=== PATIENT | male | born 1930 | race Caucasian/White ===

== ENCOUNTER 2016-05-29 10:35 | Inpatient (IN) | payer OTHER, MEDICARE ==
[~2016-05-29 10:35] MED LIST: AMIODARONE HCL200 M1 PO; AMLODIPINE BESY10 M1 PO; ASPIRIN EC81 MG PO; AUGMENTIN 875-1 EAC2 PO; B-12500 MC1 PO; CALCIUM 250+D1 EACH PO; CITALOPRAM HBR40 M1 PO; COUMADIN2.5 M1 PO; CULTURELLE1 EAC1 PO; ENALAPRIL MALE2.5 M1 PO; FINASTERIDE5 M2 PO; FLOMAX0.4 M1 PO; FOSAMAX70 M1 PO; GUAIFENESIN400 M1 PO; HYDROCODON-ACE1 EA16 PO; IPRAT-ALBUT 0.5-3 ML NEB; ISOSORBIDE DINI10 M1 PO; LEVAQUIN750 M1 PO; LISINOPRIL10 M1 PO; LOPERAMIDE2 M2 PO; MULTIPLE VITAM1 EAC3 PO; NEURONTIN300 M1 PO; NYSTATIN100000 UNI SSW; OMEPRAZOLE20 M3 PO; PERIDEX118 ML SSP; PREDNISONE10 M1 PO; PROAIR HFA8.5 GM INH; SPIRIVA18 MC1 INH; SYMBICORT 160-1 PUFF INH; TAMIFLU75 MG/CAP PO; TOPROL XL25 M1 PO; VASOTEC5 M1 PO; VENTOLIN HFA18 G2 INH; VITAMIN D31000 UNI4 PO
[2016-05-29 11:24] LABS: BASO % 0.3 % (0-2); EOS % 0.1 % (0-7); HCT-HEMATOCRIT 34.6 % (36.0-53.5); HGB-HEMOGLOBIN 11.2 gm/dl (13.5-17.0); IMMATURE GRANULOCYTES ABSOLUTE 0.06 tho/cmm (0-0.03); IMMATURE GRANULOCYTES PERCENT 0.6 % (0-0.3); LYMPH % 5.7 % (20-45); LYMPH ABSOLUTE COUNT 0.6 tho/cmm (0.8-4.5); MCH (MEAN CORPUSCULAR HGB) 27.4 pg (28.0-32.0); MCHC MEAN CORPUSCULAR HGB CONC 32.4 % (32.0-36.0); MCV (MEAN CELL VOLUME) 84.6 fl (82.0-96.0); MEAN PLATELET VOLUME 10.4 cmc (9.4-12.4); MONO % 8.4 % (0-12); MONOCYTE ABSOLUTE COUNT 0.8 tho/cmm (0.0-1.2); NEUTROPHIL ABSOLUTE COUNT 8.4 tho/cmm (1.6-8.0); NEUTROPHIL-AUTOMATED 8.4 tho/cmm (1.6-8.0); NEUTROPHILS % 84.9 % (40-80); PLATELET COUNT 254 tho/cmm (150-450); RED BLOOD COUNT 4.09 mil/cmm (4.40-5.70); RED CELL DISTRIBUTION WIDTH 17.9 % (12.4-16.4); WHITE BLOOD COUNT 9.9 tho/cmm (4.0-10.0)
[2016-05-29 11:25] LABS: INR 2.3 INR (0.9-1.1); PROTHROMBIN TIME 27.7 SECONDS (9.0-13.6)
[2016-05-29 11:38] LABS: ANION GAP 13 mmol/L (0-20); BLOOD UREA NITROGEN 16 mg/dl (6-24); CALCIUM 8.6 mg/dl (8.5-10.5); CARBON DIOXIDE-VENOUS 25 mmol/L (22-32); CHLORIDE 108 mmol/l (96-110); CREATININE 1.17 mg/dl (0.60-1.30); GLUCOSE 103 mg/dL (70-110); POTASSIUM 3.6 mmol/L (3.7-5.1); SODIUM 142 mmol/L (135-145); eGFR VALUE FOR BLACK 65 mL/Min
[2016-05-29] MEDS ORDERED: VITAMIN D31000 UNI3 PO (12:16)
[2016-05-31 05:22] LABS: BASO % 0.1 % (0-2); HCT-HEMATOCRIT 33.4 % (36.0-53.5); HGB-HEMOGLOBIN 10.8 gm/dl (13.5-17.0); IMMATURE GRANULOCYTES ABSOLUTE 0.06 tho/cmm (0-0.03); IMMATURE GRANULOCYTES PERCENT 0.6 % (0-0.3); LYMPH % 3.2 % (20-45); LYMPH ABSOLUTE COUNT 0.3 tho/cmm (0.8-4.5); MCH (MEAN CORPUSCULAR HGB) 27.2 pg (28.0-32.0); MCHC MEAN CORPUSCULAR HGB CONC 32.3 % (32.0-36.0); MCV (MEAN CELL VOLUME) 84.1 fl (82.0-96.0); MEAN PLATELET VOLUME 10.1 cmc (9.4-12.4); MONO % 4.1 % (0-12); MONOCYTE ABSOLUTE COUNT 0.4 tho/cmm (0.0-1.2); NEUTROPHIL ABSOLUTE COUNT 9.8 tho/cmm (1.6-8.0); NEUTROPHIL-AUTOMATED 9.8 tho/cmm (1.6-8.0); PLATELET COUNT 252 tho/cmm (150-450); RED BLOOD COUNT 3.97 mil/cmm (4.40-5.70); RED CELL DISTRIBUTION WIDTH 17.6 % (12.4-16.4); WHITE BLOOD COUNT 10.6 tho/cmm (4.0-10.0)
[2016-05-31 05:46] LABS: ANION GAP 16 mmol/L (0-20); BLOOD UREA NITROGEN 21 mg/dl (6-24); CALCIUM 8.6 mg/dl (8.5-10.5); CARBON DIOXIDE-VENOUS 24 mmol/L (22-32); CHLORIDE 107 mmol/l (96-110); CREATININE 1.29 mg/dl (0.60-1.30); GLUCOSE 108 mg/dL (70-110); SODIUM 143 mmol/L (135-145); eGFR VALUE FOR BLACK 57 mL/Min
[2016-06-02 05:26] LABS: HCT-HEMATOCRIT 33.2 % (36.0-53.5); HGB-HEMOGLOBIN 10.6 gm/dl (13.5-17.0); IMMATURE GRANULOCYTES ABSOLUTE 0.08 tho/cmm (0-0.03); IMMATURE GRANULOCYTES PERCENT 1.1 % (0-0.3); LYMPH % 3.8 % (20-45); LYMPH ABSOLUTE COUNT 0.3 tho/cmm (0.8-4.5); MCH (MEAN CORPUSCULAR HGB) 27.1 pg (28.0-32.0); MCHC MEAN CORPUSCULAR HGB CONC 31.9 % (32.0-36.0); MCV (MEAN CELL VOLUME) 84.9 fl (82.0-96.0); MEAN PLATELET VOLUME 10.5 cmc (9.4-12.4); MONO % 5.1 % (0-12); MONOCYTE ABSOLUTE COUNT 0.4 tho/cmm (0.0-1.2); NEUTROPHIL ABSOLUTE COUNT 6.9 tho/cmm (1.6-8.0); NEUTROPHIL-AUTOMATED 6.9 tho/cmm (1.6-8.0); PLATELET COUNT 245 tho/cmm (150-450); RED BLOOD COUNT 3.91 mil/cmm (4.40-5.70); WHITE BLOOD COUNT 7.6 tho/cmm (4.0-10.0)
[2016-06-02 05:39] LABS: ANION GAP 13 mmol/L (0-20); BLOOD UREA NITROGEN 29 mg/dl (6-24); CARBON DIOXIDE-VENOUS 27 mmol/L (22-32); CHLORIDE 107 mmol/l (96-110); GLUCOSE 128 mg/dL (70-110); POTASSIUM 4.1 mmol/L (3.7-5.1); SODIUM 143 mmol/L (135-145); eGFR VALUE FOR BLACK 57 mL/Min
[2016-06-02] MEDS ORDERED: ZITHROMAX250 M1 PO (13:41)
[2016-06-02] MEDS ORDERED: CEFPODOXIME PR200 M1 PO (13:44)
[2016-06-02] MEDS ORDERED: ACIDOPHILUS LA1 EAC1 PO (13:44)
[2016-06-02] MEDS ORDERED: PREDNISONE10 M1 PO (13:49)
[2016-10-01] MEDS ORDERED: ELIQUIS5 M1 PO (13:14)
[2016-10-01] MEDS ORDERED: DELTASONE20 MG PO (14:19)
[2016-10-01] MEDS ORDERED: NYSTATIN100000 UNI SSP (14:20)
[2016-10-01] MEDS ORDERED: LOPERAMIDE2 M2 PO (14:20)
[2016-10-07] MEDS ORDERED: LEVAQUIN750 M1 PO (14:20)
[2016-12-03] MEDS ORDERED: ZITHROMAX250 M1 PO (15:11)
[2016-12-03] MEDS ORDERED: SERTRALINE HCL50 M4 PO (15:15)
[2016-12-03] MEDS ORDERED: LOPERAMIDE2 M2 PO (15:16)
[2016-12-03] MEDS ORDERED: TYLENOL325 M2 PO (15:16)
[2016-12-07] MEDS ORDERED: AUGMENTIN 875-1 EAC2 PO (16:06)
== END 2016-06-02 15:00 | DRG 190 ==
LOC: EDMED 10:35 → EMR2 13:26 → 5WE 15:00
PROVIDERS: Emergency Medicine; Internal Medicine; ADMIT Family Medicine
DX: J44.0 Chronic obstructive pulmonary disease with (acute) lower respiratory infection (principal); J69.0 Pneumonitis due to inhalation of food and vomit; I21.4 Non-ST elevation (NSTEMI) myocardial infarction; I48.2 Chronic atrial fibrillation; G62.9 Polyneuropathy, unspecified; I10 Essential (primary) hypertension; G25.81 Restless legs syndrome; N40.0 Benign prostatic hyperplasia without lower urinary tract symptoms; I25.2 Old myocardial infarction; R19.7 Diarrhea, unspecified; J44.1 Chronic obstructive pulmonary disease with (acute) exacerbation; Z86.718 Personal history of other venous thrombosis and embolism; Z79.01 Long term (current) use of anticoagulants; Z87.891 Personal history of nicotine dependence; Z79.82 Long term (current) use of aspirin
CPT/HCPCS: J0456; J1650; J1956; J2543; J2920; J2930; J3370; J7050; J7512